=== PATIENT | male | born 1970 | race Caucasian/White ===

== ENCOUNTER 2020-07-19 15:41 | Emergency (ER) | payer SELFPAY ==
[~2020-07-19] VITALS: Ht 185.4 cm; Wt 90.9 kg
[~2020-07-19 15:41] MED LIST: DIGITEK0.25 MG PO; MEDROL 4MG DOSPA4 MG PO; NORCO 325 MG-51 TAB PO; VALTREX1 GM PO
[2020-07-19 15:46] VITALS: TEMP 98.1
[2020-07-19] MEDS ORDERED: CEPHALEXIN500 M1 PO (16:56)
[2020-07-19 17:50] VITALS: BP 150/110; PULSE 66
== END 2020-07-19 17:50 | disposition home or self-care (01) ==
LOC: COL.ER 15:41
DX: S52.92XB Unspecified fracture of left forearm, initial encounter for open fracture type I or II (principal); S50.852A Superficial foreign body of left forearm, initial encounter; Z88.0 Allergy status to penicillin; W34.09XA Accidental discharge from other specified firearms, initial encounter; Y92.59 Other trade areas as the place of occurrence of the external cause; Y99.0 Civilian activity done for income or pay